=== PATIENT | female | born 1945 | race Asian ===

== ENCOUNTER 2018-03-04 10:53 | Day surgery (SDC) | payer MEDICARE, OTHER ==
[2018-03-04] MEDS ORDERED: LACTATED RINGER'S 1,000 ML IV (12:30)
[2018-03-04] MEDS ORDERED: ROPIVACAINE 0.5 % 30 ML VIAL (13:55)
[2018-03-04] MEDS ORDERED: FENTAnyl 50 MCG/ML VIAL (14:32)
[2018-03-04] MEDS ORDERED: ONDANSETRON 4 MG INJ (14:33)
[2018-03-04] MEDS ORDERED: MIDAZOLAM 1 MG/ML 2 ML INJ (14:33)
[2018-03-04] MEDS: POLYMYXIN/BACITRACIN 1L IRRIG (14:55)
[2018-03-04] MEDS ORDERED: PROPOFOL 100 ML (15:52)
[2018-03-04] MEDS ORDERED: HYDROCODONE/APAP (5/325) TAB PO (16:00)
== END 2018-03-04 17:30 | disposition home or self-care (01) ==
LOC: SDS 10:53
DX: M67.442 Ganglion, left hand (principal); E11.9 Type 2 diabetes mellitus without complications; I10 Essential (primary) hypertension; Z79.82 Long term (current) use of aspirin
CPT/HCPCS: 26160; 73140; 82962; 88304